=== PATIENT | female | born 1935 | race Two or more races ===

== ENCOUNTER 2019-06-02 14:44 | Emergency (ER) | payer OTHER, MEDICAID ==
[2019-06-02 15:00] VITALS: BP 163/85
[2019-06-02 16:59] LABS: Urine Bacteria FEW /hpf (None Seen); Urine Blood TRACE /uL (Negative); Urine Mucus FEW (None Seen); Urine WBC 7 /hpf (0 - 5)
[2019-06-02] MEDS ORDERED: cefTRIAXone SOD 1,000 MG VL IM ONE (17:30)
[2019-06-02] MEDS ORDERED: ACETAMINOPHEN 325 MG TAB PO ONE (17:30)
== END 2019-06-02 18:03 | disposition home or self-care (01) ==
LOC: ER 14:56
DX: H66.91 Otitis media, unspecified, right ear (principal); J02.9 Acute pharyngitis, unspecified; N39.0 Urinary tract infection, site not specified
CPT/HCPCS: 71046; 81001; 96372; 99284; J0696

== ENCOUNTER 2019-08-25 16:10 | Emergency (ER) | payer OTHER, MEDICAID ==
[2019-08-25 20:34] VITALS: BP 143/67
[2019-08-25] MEDS: ACETAMINOPHEN/CODEINE#3 (300/30mg) TAB PO ONE (20:46)
[2019-08-25] MEDS: DexAMETHasone SOD PHOS 10MG/1ML VIAL INJ IM ONE (20:46)
== END 2019-08-25 21:34 | disposition home or self-care (01) ==
LOC: ER 16:18
DX: J06.9 Acute upper respiratory infection, unspecified (principal)
CPT/HCPCS: 71045; 96372; 99283; J1100

== ENCOUNTER 2024-01-23 14:37 | Inpatient (IN) | payer OTHER, MEDICAID ==
[~2024-01-23] VITALS: Ht 167.6 cm; Wt 69.2 kg
[2024-01-23 15:39] LABS: Basophils # (auto) 0 10 ^3/uL (0-0.2); Basophils % (auto) 0.2 % (0.0-2.0); Eosinophils # (auto) 0 10 ^3/uL (0-0.8); Eosinophils % (auto) 0.2 % (0.0-7.0); Hematocrit 38.7 % (36.0-46.0); Lymphocytes # (auto) 1.1 10 ^3/uL (0.4-5.4); Lymphocytes % (auto) 15.9 % (10.0-50.0); Mean Corpuscular Hemoglobin 28.9 pg (28.0-32.0); Mean Corpuscular Hgb Conc. 33.6 g/dL (32.0-36.0); Mean Corpuscular Volume 86.1 fL (80.0-100.0); Monocytes # (auto) 0.9 10 ^3/uL (0-1.3); Monocytes % (auto) 12.9 % (0.0-12.0); Neutrophils % (auto) 70.8 % (37.0-80.0); Nucleated Red Blood Cells % 0.1 %; Red Cell Distribution Width 14.7 % (11.8-14.3); White Blood Cell 7.1 10^3/uL (4.4-10.8)
[2024-01-23 15:56] LABS: Alanine Aminotransferase 32 U/L (7-40); Albumin 4.3 g/dL (3.2-4.8); Alkaline Phosphatase 112 U/L (46-116); Anion Gap 6 (5-15); Aspartate Aminotransferase 24 U/L (13-40); BUN/Creatinine Ratio 27.3 (10.0-20.0); Bilirubin, Total 0.4 mg/dL (0.2-1.0); Blood Urea Nitrogen 24 mg/dL (9-23); Carbon Dioxide 27 mmol/L (20-30); Chloride 112 mmol/L (98-107); Glucose 124 mg/dL (74-106); Potassium 2.9 mmol/L (3.5-5.1); Sodium 145 mmol/L (136-145); Total Protein 7.3 g/dL (5.7-8.2)
[2024-01-23] MEDS: DICYCLOMINE HCL (10MG/ML) 2 ML AMPULE IM ONE (23:29)
[2024-01-23] MEDS: IOHEXOL 350 MG/ML 100ML IJ ONE (23:29)
[2024-01-24] MEDS: SODIUM CHLORIDE 0.9% 1,000 ML IV ONE (00:30)
[2024-01-24] MEDS ORDERED: ONDANSETRON HCL 4 MG/2 ML VIAL IV PRN (01:15)
[2024-01-24] MEDS ORDERED: ACETAMINOPHEN 325 MG TAB PO PRN (01:15)
[2024-01-24] MEDS ORDERED: DOCUSATE SOD 100 MG CAP PO PRN (01:15)
[2024-01-24 05:10] LABS: Basophils # (auto) 0 10 ^3/uL (0-0.2); Basophils % (auto) 0.3 % (0.0-2.0); Eosinophils # (auto) 0.1 10 ^3/uL (0-0.8); Eosinophils % (auto) 0.5 % (0.0-7.0); Hematocrit 39.1 % (36.0-46.0); Hemoglobin 12.7 g/dL (12.2-16.2); Lymphocytes # (auto) 1.3 10 ^3/uL (0.4-5.4); Mean Corpuscular Hemoglobin 28.7 pg (28.0-32.0); Mean Corpuscular Hgb Conc. 32.6 g/dL (32.0-36.0); Mean Corpuscular Volume 88.2 fL (80.0-100.0); Monocytes # (auto) 0.9 10 ^3/uL (0-1.3); Monocytes % (auto) 8.5 % (0.0-12.0); Neutrophils # (auto) 8.6 10 ^3/uL (1.6-8.6); Neutrophils % (auto) 78.7 % (37.0-80.0); Nucleated Red Blood Cells % 0.2 %; Red Blood Cells 4.43 10^6/uL (4.0-5.20); Red Cell Distribution Width 14.6 % (11.8-14.3)
[2024-01-24 05:14] LABS: Chloride 112 mmol/L (98-107); Potassium 2.7 mmol/L (3.5-5.1); Sodium 140 mmol/L (136-145)
[2024-01-24 05:15] LABS: Anion Gap 8 (5-15); Calcium 8.7 mg/dL (8.5-10.1); Carbon Dioxide 20 mmol/L (20-30)
[2024-01-24 05:20] LABS: BUN/Creatinine Ratio 20.3 (10.0-20.0); Blood Urea Nitrogen 14 mg/dL (9-23); Glucose 94 mg/dL (74-106)
[2024-01-24] MEDS ORDERED: NITROGLYCERIN 0.4 MG SL TAB SL PRN (05:30)
[2024-01-24 06:10] VITALS: PULSE 72; RESP 16; O2SAT 95
[2024-01-24] MEDS: SODIUM CHLOR 0.9% PF (SALINE LOCK) 10ML VIAL/SYR IV SCH (06:10)
[2024-01-24 07:30] VITALS: PULSE 60; RESP 17; O2SAT 95
[2024-01-24] MEDS: POTASSIUM CHL 20MEQ/100ML 100 ML IV ONE (08:05)
[2024-01-24] MEDS: POTASSIUM CHLORIDE 60 MEQ, LIDOCAINE 1% (LOCAL ANESTH.) 6 ML in SODIUM CHL 0.9% 500 ML IV ONE (09:00)
[2024-01-24 09:16] LABS: Urine Bacteria MOD /hpf (None Seen); Urine Blood 1+ /uL (Negative); Urine Clarity Clear (Clear); Urine Color Yellow (Yellow); Urine Mucus FEW (None Seen); Urine Protein, UAD 1+ (Negative); Urine Urobilinogen Normal (Negative); Urine WBC 9 /hpf (0 - 5)
[2024-01-24 09:27] LABS: Urine Specific Gravity > 1.050 (1.001-1.035)
[2024-01-24 12:47] LABS: Chloride 112 mmol/L (98-107); Potassium 2.9 mmol/L (3.5-5.1); Sodium 142 mmol/L (136-145)
[2024-01-24 12:48] LABS: Anion Gap 4 (5-15); Carbon Dioxide 26 mmol/L (20-30)
[2024-01-24 12:49] LABS: Calcium 8.3 mg/dL (8.5-10.1)
[2024-01-24 12:53] LABS: BUN/Creatinine Ratio 22.4 (10.0-20.0); Blood Urea Nitrogen 15 mg/dL (9-23); Glucose 91 mg/dL (74-106)
[2024-01-24] MEDS ORDERED: LOPERAMIDE HCL 2 MG CAP/TAB PO PRN (13:30)
[2024-01-24] MEDS: SODIUM CHLORIDE 0.9% 1,000 ML IV SCH (14:00)
[2024-01-24] MEDS: cefTRIAXone 1GM/50ML D5W 50 ML IV SCH (14:57)
[2024-01-24] MEDS: LOPERAMIDE HCL 2 MG CAP/TAB PO ONE (15:49)
[2024-01-24 18:41] LABS: Chloride 114 mmol/L (98-107); Potassium 3.9 mmol/L (3.5-5.1); Sodium 141 mmol/L (136-145)
[2024-01-24 18:42] LABS: Anion Gap 4 (5-15); Carbon Dioxide 23 mmol/L (20-30)
[2024-01-24 18:43] LABS: Calcium 8.3 mg/dL (8.5-10.1)
[2024-01-24 18:47] LABS: BUN/Creatinine Ratio 20.7 (10.0-20.0); Blood Urea Nitrogen 12 mg/dL (9-23); Glucose 88 mg/dL (74-106)
[2024-01-24 19:30] VITALS: PULSE 80; RESP 18; O2SAT 94
[2024-01-24] MEDS: LACTATED RINGER'S 1,000 ML IV SCH (20:18)
[2024-01-25 05:08] LABS: Basophils # (auto) 0 10 ^3/uL (0-0.2); Basophils % (auto) 0.4 % (0.0-2.0); Eosinophils # (auto) 0 10 ^3/uL (0-0.8); Eosinophils % (auto) 0.8 % (0.0-7.0); Hematocrit 32.6 % (36.0-46.0); Hemoglobin 11.1 g/dL (12.2-16.2); Lymphocytes # (auto) 1.5 10 ^3/uL (0.4-5.4); Lymphocytes % (auto) 28.5 % (10.0-50.0); Mean Corpuscular Hemoglobin 29.1 pg (28.0-32.0); Mean Corpuscular Hgb Conc. 34.2 g/dL (32.0-36.0); Mean Corpuscular Volume 85.3 fL (80.0-100.0); Monocytes # (auto) 0.5 10 ^3/uL (0-1.3); Monocytes % (auto) 9.9 % (0.0-12.0); Neutrophils # (auto) 3.2 10 ^3/uL (1.6-8.6); Neutrophils % (auto) 60.4 % (37.0-80.0); Nucleated Red Blood Cells % 0.1 %; Red Blood Cells 3.82 10^6/uL (4.0-5.20); Red Cell Distribution Width 14.3 % (11.8-14.3); White Blood Cell 5.3 10^3/uL (4.4-10.8)
[2024-01-25 05:23] LABS: Alanine Aminotransferase 18 U/L (7-40); Alkaline Phosphatase 78 U/L (46-116); Anion Gap 7 (5-15); Aspartate Aminotransferase 16 U/L (13-40); BUN/Creatinine Ratio 17.5 (10.0-20.0); Bilirubin, Total 0.4 mg/dL (0.2-1.0); Blood Urea Nitrogen 10 mg/dL (9-23); Calcium 8.2 mg/dL (8.7-10.4); Carbon Dioxide 24 mmol/L (20-30); Chloride 112 mmol/L (98-107); Glucose 82 mg/dL (74-106); Potassium 3.5 mmol/L (3.5-5.1); Sodium 143 mmol/L (136-145)
[2024-01-25 05:24] LABS: Total Protein 5.4 g/dL (5.7-8.2)
[2024-01-25 07:35] VITALS: PULSE 66; RESP 16; O2SAT 95
[2024-01-25 19:21] VITALS: PULSE 66; RESP 16; O2SAT 95
[2024-01-26] MEDS: MORPHINE SULFATE INJ 2 MG/ml SYRG IV PRN (00:05)
[2024-01-26 07:35] VITALS: PULSE 60; RESP 16; O2SAT 95
[2024-01-26 19:30] VITALS: PULSE 103; RESP 20; O2SAT 96
[2024-01-26 22:15] VITALS: BP 151/92; PULSE 91; RESP 16; TEMP 98.6; O2SAT 99
[2024-01-27] MEDS: HYDROcodone-ACET 5/325MG TAB PO PRN (00:11)
[2024-01-27] MEDS ORDERED: MELATONIN 5 MG TAB PO ONE (00:45)
[2024-01-27 01:28] VITALS: BP 151/92; PULSE 91; RESP 16; TEMP 98.6; O2SAT 99
[2024-01-27 05:00] VITALS: BP 112/90; PULSE 69; RESP 17; TEMP 98.9; O2SAT 97
[2024-01-27 08:00] VITALS: PULSE 65
[2024-01-27 08:30] VITALS: BP 107/56; PULSE 64; RESP 16; TEMP 98; O2SAT 96
[2024-01-27] MEDS ORDERED: LEVO500T91 PO (08:44)
[2024-01-27] MEDS ORDERED: METR-344 PO (08:44)
[2024-01-27 09:30] VITALS: PULSE 65; RESP 18; O2SAT 96
[2024-01-27 12:31] VITALS: BP 177/78; PULSE 91; RESP 18; TEMP 98; O2SAT 100
== END 2024-01-27 14:45 | disposition home or self-care (01) | DRG 392 ==
LOC: ER 14:37 → TELE-CENTR 01-24 05:26 → TELE 01-24 05:27 → TELE-CENTR 01-26 23:30
PROVIDERS: ADMIT Family Medicine; ATTEND Family Medicine
DX: A08.4 Viral intestinal infection, unspecified (principal); E46 Unspecified protein-calorie malnutrition; N39.0 Urinary tract infection, site not specified; E87.6 Hypokalemia; E04.1 Nontoxic single thyroid nodule; E05.90 Thyrotoxicosis, unspecified without thyrotoxic crisis or storm; F03.90 Unspecified dementia, unspecified severity, without behavioral disturbance, psychotic disturbance, mood disturbance, and anxiety; K76.89 Other specified diseases of liver; Z68.24 Body mass index [BMI] 24.0-24.9, adult
CPT/HCPCS: 36415; 71275; 80048; 80053; 81001; 83605; 83880; 84443; 84484; 85025; 85379; G0378; J2001; J3480

== ENCOUNTER 2024-02-18 19:25 | Emergency (ER) | payer OTHER, MEDICAID ==
[~2024-02-18 19:25] MED LIST: LEVO500T91 PO; METR-344 PO
[2024-02-18] MEDS: TETANUS-DIPTH-ACEL PERTUSSIS 0.5ML SYR Tdap IM ONE (20:22)
[2024-02-18 20:28] VITALS: PULSE 79; RESP 18; O2SAT 94
[2024-02-18 20:29] LABS: Basophils # (auto) 0.1 10 ^3/uL (0-0.2); Basophils % (auto) 0.7 % (0.0-2.0); Eosinophils # (auto) 0.1 10 ^3/uL (0-0.8); Eosinophils % (auto) 1.2 % (0.0-7.0); Hematocrit 35.7 % (36.0-46.0); Hemoglobin 11.9 g/dL (12.2-16.2); Lymphocytes # (auto) 1.5 10 ^3/uL (0.4-5.4); Lymphocytes % (auto) 18.2 % (10.0-50.0); Mean Corpuscular Hemoglobin 28.3 pg (28.0-32.0); Mean Corpuscular Hgb Conc. 33.4 g/dL (32.0-36.0); Mean Corpuscular Volume 84.7 fL (80.0-100.0); Monocytes # (auto) 0.7 10 ^3/uL (0-1.3); Monocytes % (auto) 8.4 % (0.0-12.0); Neutrophils % (auto) 71.5 % (37.0-80.0); Red Blood Cells 4.21 10^6/uL (4.0-5.20); Red Cell Distribution Width 14.2 % (11.8-14.3); White Blood Cell 8.4 10^3/uL (4.4-10.8)
[2024-02-18 20:52] LABS: Alanine Aminotransferase 18 U/L (7-40); Alkaline Phosphatase 113 U/L (46-116); Anion Gap 8 (5-15); Aspartate Aminotransferase 20 U/L (13-40); BUN/Creatinine Ratio 26.3 (10.0-20.0); Bilirubin, Total 0.5 mg/dL (0.2-1.0); Blood Urea Nitrogen 20 mg/dL (9-23); Carbon Dioxide 26 mmol/L (20-30); Chloride 105 mmol/L (98-107); Glucose 101 mg/dL (74-106); Potassium 3.7 mmol/L (3.5-5.1); Sodium 139 mmol/L (136-145)
[2024-02-19] MEDS: LORazepam 2MG/ML-1ML VIAL IV ONE (00:53)
[2024-02-19] MEDS: ONDANSETRON HCL 4 MG/2 ML VIAL IV ONE (04:03)
[2024-02-19 07:07] VITALS: BP 128/66; PULSE 67; RESP 12; TEMP 98.4; O2SAT 97
== END 2024-02-19 07:10 | disposition short-term general hospital (02) ==
LOC: ER 19:25 → EDBD 19:25 → ER 02-19 07:10
DX: S02.2XXA Fracture of nasal bones, initial encounter for closed fracture (principal); S02.40FA Zygomatic fracture, left side, initial encounter for closed fracture; S00.83XA Contusion of other part of head, initial encounter; F03.90 Unspecified dementia, unspecified severity, without behavioral disturbance, psychotic disturbance, mood disturbance, and anxiety; E78.5 Hyperlipidemia, unspecified; I10 Essential (primary) hypertension; W18.30XA Fall on same level, unspecified, initial encounter; Y93.89 Activity, other specified; Y92.009 Unspecified place in unspecified non-institutional (private) residence as the place of occurrence of the external cause; Y99.8 Other external cause status
CPT/HCPCS: 36415; 70450; 70486; 71045; 71250; 72125; 74176; 80053; 84443; 84484; 85025; 90471; 90715; 93005; 96374; 96375; 99285; J2060; J2405